=== PATIENT | female | born 1970 | race Caucasian/White ===

== ENCOUNTER 2020-10-21 17:13 | Inpatient (IN) | payer OTHER ==
[2020-10-21] MEDS ORDERED: LORazepam 1 MG TABLET PO PRN (20:39)
[2020-10-21] MEDS ORDERED: MAGNESIUM HYDROX 2400MG/30ML ORAL SUSPENSION 30 ML CUP PO PRN (20:39)
[2020-10-21] MEDS ORDERED: MAG HYDROX/AL HYDROX/SIMETH 30 ML UNIT-DOSE CUP PO PRN (20:39)
[2020-10-21] MEDS ORDERED: MENTHOL/PHENOL 1 EACH UD MM PRN (20:39)
[2020-10-21] MEDS ORDERED: BISMUTH SUBSALICYLATE 524 MG/30 ML UD PO PRN (20:39)
[2020-10-21] MEDS ORDERED: ONDANSETRON *ODT* 4 MG TABLET SL PRN (20:39)
[2020-10-21] MEDS ORDERED: MAGNESIUM CITRATE 300 ML BOTTLE PO PRN (20:39)
[2020-10-21] MEDS ORDERED: METHOCARBAMOL 500 MG TABLET PO PRN (20:39)
[2020-10-21] MEDS ORDERED: NICOTINE POLACRILEX 2 MG GUM BUC PRN (20:39)
[2020-10-21] MEDS ORDERED: IBUPROFEN 400 MG TABLET (FP) PO PRN (20:39)
[2020-10-21] MEDS ORDERED: ACETAMINOPHEN 325 MG TABLET (FP) PO PRN ×2 (20:39)
[2020-10-21 20:51] VITALS: BMI 29.0
[2020-10-21] MEDS: MELATONIN 5 MG TABLETS PO SCH (23:05)
[2020-10-21] MEDS: LORazepam 2 MG TABLET PO SCH (23:05)
[2020-10-21] MEDS: THIAMINE HCL 100 MG TABLET (FP) PO SCH (23:06)
[2020-10-22] MEDS: LORazepam 2 MG TABLET PO SCH ×4 (05:59→22:18)
[2020-10-22] MEDS: PRENATAL VITAMINS W/ FOLIC ACID TABLET (FP) PO SCH (11:06)
[2020-10-22] MEDS: NICOTINE 14 MG/24 HOURS TOPICAL PATCH TD SCH (11:06)
[2020-10-22 12:06] LABS: HEMATOCRIT 29.7 % (32.4-45.2); MCH 27.4 pg (25.7-33.7); MCHC 33.7 g/dl (32.0-36.0); MEAN CELL VOLUME 81.2 fl (80-96); MEAN PLT VOLUME 8.7 fl (7.5-11.1); PLATELET COUNT 62 K/MM3 (134-434); RBC 3.65 M/mm3 (3.60-5.2); WHITE BLOOD COUNT 3.9 K/mm3 (4.0-10.0)
[2020-10-22 12:11] LABS: POTASSIUM 3.8 mmol/L (3.5-5.1)
[2020-10-22 12:15] LABS: BLOOD UREA NITROGEN 5.3 mg/dL (7-18)
[2020-10-22 12:18] LABS: CREATININE 0.6 mg/dL (0.55-1.3)
[2020-10-22 12:20] LABS: BILIRUBIN,TOTAL 1.5 mg/dL (0.2-1); TOT PROT 5.6 g/dl (6.4-8.2)
[2020-10-22 12:27] LABS: ALBUMIN 2.3 g/dl (3.4-5.0)
[2020-10-22] MEDS: MELATONIN 5 MG TABLETS PO SCH (22:17)
[2020-10-22] MEDS: levETIRAcetam 500 MG TABLET (FP) PO SCH (22:18)
[2020-10-22] MEDS: THIAMINE HCL 100 MG TABLET (FP) PO SCH (22:18)
[2020-10-23] MEDS: LORazepam 1 MG TABLET PO SCH ×4 (05:46→22:18)
[2020-10-23] MEDS: PRENATAL VITAMINS W/ FOLIC ACID TABLET (FP) PO SCH (10:25)
[2020-10-23] MEDS: levETIRAcetam 500 MG TABLET (FP) PO SCH ×2 (10:26→22:17)
[2020-10-23] MEDS: NICOTINE 14 MG/24 HOURS TOPICAL PATCH TD SCH (10:26)
[2020-10-23] MEDS: MELATONIN 5 MG TABLETS PO SCH (22:16)
[2020-10-23] MEDS: THIAMINE HCL 100 MG TABLET (FP) PO SCH (22:17)
[2020-10-24] MEDS ORDERED: LORazepam 0.5 MG TABLET PO PRN
[2020-10-24] MEDS: LORazepam 0.5 MG TABLET PO SCH ×4 (05:25→22:22)
[2020-10-24] MEDS: NICOTINE 14 MG/24 HOURS TOPICAL PATCH TD SCH (10:10)
[2020-10-24] MEDS: PRENATAL VITAMINS W/ FOLIC ACID TABLET (FP) PO SCH (10:10)
[2020-10-24] MEDS: levETIRAcetam 500 MG TABLET (FP) PO SCH ×2 (10:10→22:22)
[2020-10-24] MEDS: THIAMINE HCL 100 MG TABLET (FP) PO SCH (22:21)
[2020-10-24] MEDS: MELATONIN 5 MG TABLETS PO SCH (22:21)
[2020-10-24 22:55] VITALS: BP 115/62; PULSE 89; TEMP 97.7
[2020-10-25] MEDS ORDERED: LORazepam 0.5 MG TABLET PO ONE (05:00)
[2020-10-25] MEDS: PRENATAL VITAMINS W/ FOLIC ACID TABLET (FP) PO SCH (09:50)
[2020-10-25] MEDS: levETIRAcetam 500 MG TABLET (FP) PO SCH (09:50)
== END 2020-10-25 11:15 | disposition home or self-care (01) | DRG 774 ==
LOC: YASAS 17:13 → Y6N 21:37
PROVIDERS: ADMIT Allergy & Immunology; ATTEND Allergy & Immunology
PROC: HZ2ZZZZ Detoxification Services for Substance Abuse Treatment (ICD-10-PCS; principal; 2020-10-22)
DX: F10.230 Alcohol dependence with withdrawal, uncomplicated (principal); F14.20 Cocaine dependence, uncomplicated; F17.210 Nicotine dependence, cigarettes, uncomplicated; F19.24 Other psychoactive substance dependence with psychoactive substance-induced mood disorder; D69.6 Thrombocytopenia, unspecified; K70.30 Alcoholic cirrhosis of liver without ascites; G40.909 Epilepsy, unspecified, not intractable, without status epilepticus; M25.561 Pain in right knee; G89.29 Other chronic pain; B18.2 Chronic viral hepatitis C; R74.01 Elevation of levels of liver transaminase levels; Z91.5 Personal history of self-harm
CPT/HCPCS: 36415; 80053; 80177; 81025; 85027; 86780; 93005; 93010; C9803; U0003